=== PATIENT | male | born 1935 | race Caucasian/White ===

== ENCOUNTER → 2016-10-14 | Outpatient (REF) ==
[~2016-10-14] MED LIST: ALLEGRA 180MG180 MG PO; CALCIUM600 M1 PO; CEPHALEXIN500 M1 PO; GLUCOPHAGE500 MG/TAB PO; GLUCOTROL 5M5 MG/TAB; MULTIPLE VITAMI1 TAB PO; MVI; NORCO 325 MG-51 TAB PO; TYLENOL 325MG325 MG PO; VITAMIN C500 MG PO; ZESTRIL 10MG10 MG PO; ZOCOR 20MG20 MG PO; sinus med
== END ==
LOC: ZLAB.WCH 10:41
DX: Z01.89 Encounter for other specified special examinations (principal)

== ENCOUNTER → 2017-02-03 | Outpatient (REF) | LOC: ZLAB.WCH 18:23 | DX: Z01.89 Encounter for other specified special examinations (principal) ==

== ENCOUNTER → 2017-07-21 | Outpatient (REF) ==
[~2017-07-21] MED LIST changes: +MOTRIN 600600 MG/TAB PO
== END ==
LOC: ZLAB.WCH 09:53
DX: Z01.89 Encounter for other specified special examinations (principal)
CPT/HCPCS: G0103

== ENCOUNTER 2017-08-04 06:46 | Outpatient (CLI) | payer MEDICARE, OTHER ==
[2017-08-04] VITALS (15 sets, daily range): BP systolic 87–138; BP diastolic 53–81; PULSE 62–73
[~2017-08-04] VITALS: Ht 167.6 cm; Wt 38.0 kg
[2017-08-04 07:36] LABS: BASO # 0.1 (0.0-0.2); BASO % 0.5 % (0.0-2.0); EOS # 0.5 (0.0-0.7); EOS % 5.1 % (0-4.0); GRAN # 5.9 (1.4-6.5); GRAN % 64.7 % (42.2-75.2); HEMOGLOBIN 12.3 g/dl (13.5-18.0); LYMPH # 1.7 (1.2-3.4); MEAN CELL VOLUME 82 fl (80.0-100.0); MEAN CORPUSCULAR HEMOGLOBIN 27 pg (27.0-31.0); MEAN CORPUSCULAR HGB CONC 33 g/dl (33.0-37.0); MEAN PLATELET VOLUME 10.2 fl (7.4-10.4); MONO # 1.1 (0.1-0.6); MONO % 11.4 % (1.7-9.3); PLATELET COUNT 347 K/mm3 (130-400); RED BLOOD COUNT 4.49 M/mm3 (4.20-5.60); REDCELL DISTRIBUTION WIDTH-CV 14.8 % (11.5-14.5)
== END 2017-08-04 12:11 | disposition home or self-care (01) ==
LOC: COL.RAD 06:46
PROVIDERS: Nurse Practitioner Family
DX: K86.89 Other specified diseases of pancreas (principal); R91.8 Other nonspecific abnormal finding of lung field; J98.6 Disorders of diaphragm

== ENCOUNTER 2017-12-01 12:35 | Outpatient (RCR) | payer MEDICARE, OTHER ==
[2018-02-26] MEDS ORDERED: LASIX 20MG TABL20 MG PO (08:41)
[2018-02-26] MEDS ORDERED: K-DUR20 MEQ PO (09:00)
[2018-02-26] MEDS ORDERED: FOLIC ACID PO (09:02)
[2018-02-26] MEDS ORDERED: [UNRECOGNIZED DRUG - OTHER] (09:08)
[2018-02-26] MEDS ORDERED: REMERON 15M15 MG/TA1 PO (09:09)
[2018-02-26] MEDS ORDERED: VITAMIN B PO (09:10)
[2018-02-26] MEDS ORDERED: VITAMIN D3 PO (09:11)
[2018-02-26] MEDS ORDERED: ASPIRIN 81M81 MG/TA2 PO (22:00)
[2018-02-26] MEDS ORDERED: ZIKS HEMATOGEN1 SG1 (22:02)
== END 2018-03-01 | disposition home or self-care (01) ==
LOC: WSST
DX: R13.12 Dysphagia, oropharyngeal phase (principal); R13.14 Dysphagia, pharyngoesophageal phase; R05 Cough; Z98.890 Other specified postprocedural states
CPT/HCPCS: G8996-GN; G8997-GN

== ENCOUNTER → 2017-12-08 | Outpatient (CLI) | payer MEDICARE, OTHER | LOC: COL.RAD 10:00 | DX: R13.10 Dysphagia, unspecified (principal); Z96.89 Presence of other specified functional implants | CPT/HCPCS: G8996-GN; G8997-GN; G8998-GN ==

== ENCOUNTER 2018-02-24 15:00 | Outpatient (RCR) | payer MEDICARE, OTHER ==
[2018-02-26] MEDS ORDERED: LASIX 20MG TABL20 MG PO (08:41)
[2018-02-26] MEDS ORDERED: K-DUR20 MEQ PO (09:00)
[2018-02-26] MEDS ORDERED: FOLIC ACID PO (09:02)
[2018-02-26] MEDS ORDERED: [UNRECOGNIZED DRUG - OTHER] (09:08)
[2018-02-26] MEDS ORDERED: REMERON 15M15 MG/TA1 PO (09:09)
[2018-02-26] MEDS ORDERED: VITAMIN B PO (09:10)
[2018-02-26] MEDS ORDERED: VITAMIN D3 PO (09:11)
[2018-02-26] MEDS ORDERED: ASPIRIN 81M81 MG/TA2 PO (22:00)
[2018-02-26] MEDS ORDERED: ZIKS HEMATOGEN1 SG1 (22:02)
== END 2018-05-19 | disposition home or self-care (01) ==
LOC: WSC
DX: R29.898 Other symptoms and signs involving the musculoskeletal system (principal); Z91.81 History of falling; Z92.21 Personal history of antineoplastic chemotherapy; C25.9 Malignant neoplasm of pancreas, unspecified
CPT/HCPCS: G8978-GP; G8979-GP

== ENCOUNTER 2018-02-26 12:37 | Emergency (ER) | payer MEDICARE, OTHER ==
[~2018-02-26] VITALS: Ht 167.6 cm; Wt 75.5 kg
[~2018-02-26 12:37] MED LIST changes: -ASPIRIN 81M81 MG/TA2 PO; -ZIKS HEMATOGEN1 SG1
[2018-02-26 13:22] LABS: BASO % 0.5 % (0.0-2.0); EOS # 0.1 (0.0-0.7); EOS % 0.8 % (0-4.0); GRAN # 4.9 (1.4-6.5); GRAN % 74.3 % (42.2-75.2); LYMPH # 0.7 (1.2-3.4); LYMPH % 10.4 % (20.0-51.0); MEAN CELL VOLUME 89 fl (80.0-100.0); MEAN CORPUSCULAR HGB CONC 31 g/dl (33.0-37.0); MEAN PLATELET VOLUME 9.5 fl (7.4-10.4); MONO # 0.9 (0.1-0.6); MONO % 13.1 % (1.7-9.3); PLATELET COUNT 412 K/mm3 (130-400); REDCELL DISTRIBUTION WIDTH-CV 19.1 % (11.5-14.5)
[2018-02-26 13:26] LABS: HEMATOCRIT 24.9 % (42.0-52.0); HEMOGLOBIN 7.6 g/dl (13.5-18.0); MEAN CORPUSCULAR HEMOGLOBIN 27 pg (27.0-31.0)
[2018-02-26 13:31] LABS: PROTHROMBIN TIME 11.6 SECONDS (9.7-12.8)
[2018-02-26 13:35] LABS: ALANINE AMINOTRANSFERASE 18 U/L (21-72); ALBUMIN 2.9 gm/dL (3.5-5.0); ALKALINE PHOSPHATASE 99 U/L (50-136); ANION GAP 3 mmol/L (7-16); AST,SGOT 15 U/L (15-37); BILIRUBIN,TOTAL 0.2 mg/dL (0.0-1.0); BLOOD UREA NITROGEN 20 mg/dL (9-20); CALCIUM 8.7 mg/dL (8.4-10.2); CARBON DIOXIDE 32 mmol/L (22-30); CHLORIDE 100 mmol/L (98-107); CREATININE, serum 0.66 mg/dL (0.66-1.25); GLUCOSE 110 mg/dL (74-106); POTASSIUM 4.5 mmol/L (3.4-5.0); SODIUM 134 mmol/L (137-145); TOTAL PROTEIN 6.1 gm/dL (6.4-8.2)
[2018-02-26 13:37] LABS: CREATINE KINASE < 20 U/L (55-170); LIPASE < 10 U/L (23-300)
[2018-02-26 13:49] LABS: TROPONIN-I < 0.012 ng/mL (0.000-0.034)
[2018-02-26 18:53] VITALS: BP 125/71; PULSE 71; TEMP 98.1
[2018-02-26] MEDS ORDERED: ASPIRIN 81M81 MG/TA2 PO (22:00)
[2018-02-26] MEDS ORDERED: ZIKS HEMATOGEN1 SG1 (22:02)
== END 2018-02-26 19:35 | disposition short-term general hospital (02) ==
LOC: COL.ER 12:37
PROVIDERS: Emergency Medicine
DX: C25.9 Malignant neoplasm of pancreas, unspecified (principal); C79.9 Secondary malignant neoplasm of unspecified site; K92.2 Gastrointestinal hemorrhage, unspecified; D64.9 Anemia, unspecified; E11.9 Type 2 diabetes mellitus without complications; I10 Essential (primary) hypertension; F17.210 Nicotine dependence, cigarettes, uncomplicated; Z79.84 Long term (current) use of oral hypoglycemic drugs
CPT/HCPCS: C9113; J0780; J2354; J2405; J2704; J7030; J7040; P9016

== ENCOUNTER → 2018-02-26 | Outpatient (CLI) | payer MEDICARE, OTHER ==
[~2018-02-26] VITALS: Ht 167.6 cm; Wt 79.4 kg
[~2018-02-26] MED LIST changes: +ASPIRIN 81M81 MG/TA2 PO; +FOLIC ACID PO; +K-DUR20 MEQ PO; +LASIX 20MG TABL20 MG PO; +REMERON 15M15 MG/TA1 PO; +VITAMIN B PO; +VITAMIN D3 PO; +ZIKS HEMATOGEN1 SG1; +[UNRECOGNIZED DRUG - OTHER]
[2018-02-26 08:38] LABS: PROTHROMBIN TIME 11.8 SECONDS (9.7-12.8)
[2018-02-26 08:58] VITALS: BP 94/68; PULSE 79
--- NOTE | 2018-02-26 11:00 | NUR ---
[place] no thoracentesis completed. Pt to have chest xray per Dr Amaro, awaiting xray at this time.
--- NOTE | 2018-02-26 11:14 | NUR ---
chest xray completed.
--- NOTE | 2018-02-26 11:36 | NUR ---
Pt and family informed of chest xray report and no need for thoracentesis. Dr Amaro stated he would be calling Dr Duran to inform her. Pt out to car per wheelchair. Pt assisted into van.
== END ==
LOC: COL.RAD 07:59
PROVIDERS: Family Medicine
DX: J90 Pleural effusion, not elsewhere classified (principal); E43 Unspecified severe protein-calorie malnutrition; J98.6 Disorders of diaphragm; Z95.828 Presence of other vascular implants and grafts